=== PATIENT | female | born 1950 | race Caucasian/White ===

== ENCOUNTER → 2017-04-27 | Outpatient (CLI) | payer OTHER, MEDICARE | LOC: BMCIMAGING 07:31 | PROVIDERS: ATTEND Physician Assistant Medical | DX: Z12.31 Encounter for screening mammogram for malignant neoplasm of breast (principal); Z80.3 Family history of malignant neoplasm of breast | CPT/HCPCS: G0202 ==

== ENCOUNTER → 2017-05-05 | Outpatient (CLI) | payer OTHER, MEDICARE | LOC: BMCIMAGING 10:22 | PROVIDERS: ATTEND Physician Assistant Medical | DX: Z12.39 Encounter for other screening for malignant neoplasm of breast (principal); R92.8 Other abnormal and inconclusive findings on diagnostic imaging of breast | CPT/HCPCS: 76641; G0206 ==

== ENCOUNTER → 2017-12-26 | Outpatient (CLI) | payer OTHER, MEDICARE | LOC: BMCIMAGING 09:44 | PROVIDERS: ATTEND Physician Assistant Medical | DX: R92.8 Other abnormal and inconclusive findings on diagnostic imaging of breast (principal); M25.552 Pain in left hip ==

== ENCOUNTER → 2019-02-07 | Outpatient (CLI) | payer OTHER, MEDICARE | LOC: BRMIMAGING 08:27 ==